=== PATIENT | male | born 1970 | race African-American/Black ===

== ENCOUNTER 2024-10-14 11:59 | Observation (INO) ==
--- NOTE | 2024-10-14 12:18 | Emergency Department Note ---
History of Present Illness General Chief complaint: Swelling/Edema to Extremity Stated complaint: PAINFUL SWOLLEN SCROTUM Time Seen by Provider: 10/14/24 12:08 History of Present Illness This is a 54-year-old male who presents to the emergency department via private vehicle accompanied by 2 corrections officers from [facility] with complaints of "swollen scrotum". Patient notes that 2 weeks ago without trauma or injury he began with scrotal pain and swelling. He initially describes the pain as if he was "kicked" in the scrotum. The patient now notes the pain is minimal but feels like the scrotum is being pulled inferiorly/notes a pulling sensation. He denies any abdominal pain. No back pain. No dysuria. No fevers or chills. No chest pain or shortness of breath. No nausea or vomiting. He does note some decreased urine output compared to baseline. Per review of the EMR patient has a history of hypertension, asthma, GERD, ulcerative colitis, eczema. Patient notes he previously was on medication but over the past week has not been on any medications. Home Medications Medication Instructions Recorded Confirmed Type bismuth subsalicylate 262 mg 1 tab PO QID PRN Diarrhea 12/19/20 10/14/24 History chewable tablet (Pepto-Bismol) ciclesonide 80 mcg/actuation 1 puff inhalation BID 12/19/20 10/14/24 History aerosol inhaler (Alvesco) albuterol sulfate 90 mcg/actuation 2 puff inhalation QID PRN SOB 10/14/24 10/14/24 History aerosol inhaler amlodipine 10 mg tablet 10 mg PO DAILY 10/14/24 10/14/24 History ergocalciferol (vitamin D2) 1,250 1,250 mcg PO WK 10/14/24 10/14/24 History mcg (50,000 unit) capsule (Vitamin D2) [id number]-[id number] 1 applic topical BID 10/14/24 10/14/24 History petrolatum topical cream (Cetaphil Moisturizing topical cream) soap 1 ea topical UD 10/14/24 10/14/24 History triamcinolone acetonide 0.1 % 1 applic topical BID PRN FLARE 10/14/24 10/14/24 History topical cream Allergies Allergy/AdvReac Type Severity Reaction Status Date / Time lisinopril Allergy Severe angioedema Verified 10/14/24 16:32 BAY Inhibitors Allergy Unknown Unknown, Unverified 10/14/24 16:32 on med list from [facility] beclomethasone [From Qvar] Allergy Unknown Unknown Verified 10/14/24 16:32 Sulfa (Sulfonamide Allergy Unknown Unknown Verified 10/14/24 16:32 Antibiotics) Past Med/Surg History Problem List (Updated 10/14/24 @ 16:45 by Kareem Coker PA-C) Edema of scrotum (Acute) Anemia Asthma Hypertension Cellulitis of scrotum (Acute) Social History Smoking Status: Never smoker Feels Safe at Home: Yes Review of Systems A total of 10 systems reviewed and were otherwise negative Physical Exam Vital Signs Vital Signs - 24 hr 10/14/24 12:03 10/14/24 14:42 Temperature 36.6 C Temperature Source Skin Pulse Rate 100 H Pulse Rate [Finger] 59 L Respiratory Rate 18 20 Respiratory Effort / Characteristics Non-Labored Spontaneous Respiratory Depth Normal Blood Pressure 178/104 H Blood Pressure [Right Arm] 136/78 Blood Pressure Mean 128 Blood Pressure Mean [Right Arm] 97 Pulse Oximetry 92 95 Oxygen Delivery Method Room Air Room Air Sepsis Recent Fever Within 48 Hours No Sepsis New/Unexplained Change in Mental Status No Sepsis Action Taken by Nursing No Action Required VITAL SIGNS - Vital signs and nursing notes were reviewed. Stable and afebrile. GENERAL - 54-year-old male appearing his stated age who is in no acute distress. Communicates well with provider and answers questions appropriately. SKIN - Without rashes. Please see exam below HEAD - NC/AT. EYES - PERRL with EOMI bilaterally. Sclera anicteric. EARS - No deformities of external structures noted on gross examination bilaterally. NOSE - Midline and without cyanosis. MOUTH/OROPHARYNX - Without perioral cyanosis. NECK - Neck with FROM.No nuchal rigidity. LUNGS - CTA CARDIAC - RRR ABDOMEN - Abdominal contour normal without pulsations or visible masses. BS normoactive all four quadrants. No tenderness, palpable masses, hepatosplenomegaly, or ascites noted. EXTREMITIES - No clubbing or peripheral cyanosis. +5/5 strength noted in UE/LE bilaterally. NEUROLOGIC - Cranial nerves grossly intact. PSYCH -alert, oriented and pleasant on exam GUverbal consent was obtained from the patient. 2 corrections officers and KESHAV Valdes at bedside to grain cleaner and transfer operator. Penis unremarkable to inspection. The scrotum is edematous without unilateral component. There is mild erythema to the scrotum. Minimal tenderness overall. Course Administered Medications Discontinued Medications Doxycycline Hyclate (Doxycycline Hyclate 100 Mg Cap) 100 mg PO NOW STA Stop: 10/14/24 14:08 Last Admin: 10/14/24 14:39 Dose: 100 mg Documented By: NA Ampicillin Sodium/Sulbactam Sodium (Unasyn) 3,000 mg in 100 mls @ 200 mls/hr IV NOW STA Stop: 10/14/24 14:34 Last Infusion: 10/14/24 16:19 Dose: Infused Documented By: Admin: 10/14/24 14:39 Dose: 200 mls/hr Documented By: YODIT Medical Decision Making Laboratory Data 10/14/24 12:25 10/14/24 12:25 Lab Results 10/14/24 10/14/24 10/14/24 Range/Units 12:25 13:25 14:08 WBC 5.71 (4.8-10.8) K/ul RBC 4.18 L (4.70-6.10) M/uL Hgb 12.0 L (14.0-18.0) g/dl Hct 37.1 L (42.0-52.0) % MCV 88.8 (80.0-100.0) fL MCH 28.7 (25.0-34.0) pg MCHC 32.3 (32.0-36.0) g/dL RDW Std Deviation 40.6 (36.4-46.3) fL RDW Coeff of Franchesca 12.6 (11.5-14.5) % Plt Count 332 (130-400) K/uL MPV 9.2 L (9.4-12.4) fL Immature Gran % (Auto) 0.4 % Neut % (Auto) 67.7 % Lymph % (Auto) 19.4 % [place] % (Auto) 10.7 % Eos % (Auto) 1.4 % Baso % (Auto) 0.4 % Neut # (Auto) 3.87 (1.40-6.50) K/uL Lymph # (Auto) 1.11 L (1.20-3.40) K/uL [place] # (Auto) 0.61 H (0.11-0.59) K/uL Eos # (Auto) 0.08 (0.00-0.50) K/uL Baso # (Auto) 0.02 (0.00-0.20) K/uL Immature Gran # (Auto) 0.02 (0.01-0.20) K/uL Sodium 141 (136-145) mmol/L Potassium 3.8 (3.5-5.1) mmol/L Chloride 104 (98-107) mmol/L Carbon Dioxide 31 (21-32) mmol/L Anion Gap 6 (3-11) BUN 7 (6-23) mg/dl Creatinine 0.80 (0.6-1.4) mg/dl Est Cr Clr Drug Dosing 140.5 ml/min eGFR 105.17 BUN/Creatinine Ratio 8.8 L (10-20) Glucose 102 H (70-99(Fasting)) mg/dl Lactate 0.9 (0.4-2.0) mmol/L Calcium 9.1 (8.6-10.3) mg/dl Total Bilirubin 0.4 (0.2-1.0) mg/dl AST 23 (13-39) U/L ALT 18 (7-52) U/L Alkaline Phosphatase 70 (34-104) U/L Total Protein 8.0 (6.0-8.3) gm/dl Albumin 4.1 (3.4-5.0) gm/dl Globulin 3.9 (2.5-4.0) gm/dl Albumin/Globulin Ratio 1.1 (0.9-2) Procalcitonin 0.08 (0-0.5) ng/ml Urine Color Yellow Urine Appearance Clear (Clear) Urine pH 7.0 (4.5-7.5) Ur Specific [place] 1.019 (1.000-1.030) Urine Protein Trace H (Negative) Urine Glucose (UA) Negative (Negative) Urine Ketones Trace H (Negative) Urine Blood Negative (Negative) Urine Nitrite Negative (Negative) Urine Bilirubin Negative (Negative) Urine Urobilinogen Negative (Negative) Ur Leukocyte Esterase Negative (Negative) Urine WBC (Auto) 0-5 (0-5) /hpf Urine RBC (Auto) 0-2 (0-2) /hpf U Hyaline Cast (Auto) 3-5 H (0-2) /lpf U Epithel Cells (Auto) 0-2 (0-2) /hpf Urine Bacteria (Auto) None Seen (None Seen) Imaging Data Radiologist's Impression: Scrotum Ultrasound 10/14/24 12:18 SCROTAL ULTRASOUND CLINICAL HISTORY: Scrotal edema, pain. COMPARISON STUDY: None. TECHNIQUE: Grayscale and color and duplex Doppler sonography of the scrotum was performed. FINDINGS: The right testis measures 4.5 x 3.2 x 2.3 cm and the left measures 4.6 x 3 x 2.4 cm. Color flow within each testis is symmetric. There is no testicular mass. 6 mm intratesticular cyst within the left testis is benign. There is no sonographic evidence for epididymitis. Scrotal wall is markedly thickened and edematous. No fluid collections are identified. IMPRESSION: 1. No sonographic evidence for testicular torsion. No testicular mass. 6 mm left testicular cyst which is benign. 2. No evidence for epididymitis. 3. Markedly thickened, edematous scrotal wall. ACT 112: Negative or not required by law. Electronically signed by: Keaton Westfall M.D. 10/14/2024 1:37 PM MDM Narrative Patient was seen and evaluated as above in room D05. Review was performed of triage nursing notes and vital signs. I did review the accompanying documentation from the [facility]. Patient was seen and evaluated as above. The patient does have an edematous scrotum with some erythema. Mild tenderness overall. No crepitus. Benign abdominal exam. Options of care were discussed with the patient, IV access with established labs were drawn. No leukocytosis. Minor anemia noted with hemoglobin of 12.0. No emergent metabolic disturbance. Mild hyperglycemia 102. Lactate and Pro-Michael are not elevated. Urinalysis does not suggest infection. Ultrasound was obtained with results as above. There is markedly thickened, edematous scrotal wall. I then discussed this with urology, ELIANE Suh at 1:42 PM. Antibiotics are recommended. We discussed inpatient versus outpatient management. At this time we will proceed with inpatient management pending clinical course. I presented this recommendation to the patient. At this time we will proceed with inpatient management. Although there are other etiologies beyond infectious causes, I do believe that treatment for infection at this time is warranted noting the appearance of the scrotum and symptoms. I did order IV Unasyn for broad coverage as well as oral doxycycline. Case discussed with the hospitalist service. Please refer to further documentation regarding his stay. GCS: 15 In the evaluation and treatment of this patient the following differential diagnoses were entertained: UTI, pyelonephritis, epididymitis, orchitis, testicular torsion, testicular mass, hernia, cellulitis, Amador gangrene, among others. Impression & Plan Cellulitis of scrotum, Edema of scrotum Discharge Plan Visit Data Chief Complaint: Swelling/Edema to Extremity Stated Complaint: PAINFUL SWOLLEN SCROTUM ED Provider: James Lu ED Midlevel Provider: Kareem Coker Discharge Problem: Cellulitis of scrotum, Edema of scrotum Patient Disposition: Admitted As Inpatient Condition: Good Discharge Instructions Interventions: ED Discharge Assessment Last Done: 10/14/24 16:22
[2024-10-14 12:57] LABS: Albumin Globulin Ratio 1.1 (0.9-2); Albumin Level 4.1 gm/dl (3.4-5.0); BUN Creatinine Ratio 8.8 (10-20); Bilirubin,Total 0.4 mg/dl (0.2-1.0); Calcium 9.1 mg/dl (8.6-10.3); Creatinine Clr Calc Pharmacy 140.5 ml/min; Globulin 3.9 gm/dl (2.5-4.0); Potassium 3.8 mmol/L (3.5-5.1)
[2024-10-14 13:07] LABS: Basophils # (auto) 0.02 K/uL (0.00-0.20); Basophils % (auto) 0.4 %; Eosinophils # (auto) 0.08 K/uL (0.00-0.50); Eosinophils % (auto) 1.4 %; Hematocrit (blood only) 37.1 % (42.0-52.0); Immature Granulocytes # (auto) 0.02 K/uL (0.01-0.20); Immature Granulocytes % (auto) 0.4 %; Lymphocytes # (auto) 1.11 K/uL (1.20-3.40); Lymphocytes % (auto) 19.4 %; Mean Corpuscular Hemoglobin 28.7 pg (25.0-34.0); Mean Corpuscular Hgb Conc 32.3 g/dL (32.0-36.0); Mean Corpuscular Volume 88.8 fL (80.0-100.0); Mean Platelet Volume 9.2 fL (9.4-12.4); Monocytes # (auto) 0.61 K/uL (0.11-0.59); Monocytes % (auto) 10.7 %; Neutrophils # (auto) 3.87 K/uL (1.40-6.50); Neutrophils % (auto) 67.7 %; Platelet Count 332 K/uL (130-400); RDW Coefficient of Variation 12.6 % (11.5-14.5); RDW Standard Deviation 40.6 fL (36.4-46.3); Red Blood Count 4.18 M/uL (4.70-6.10); White Blood Count 5.71 K/ul (4.8-10.8)
--- NOTE | 2024-10-14 13:38 | Ultrasound Report ---
SCROTAL ULTRASOUND CLINICAL HISTORY: Scrotal edema, pain. COMPARISON STUDY: None. TECHNIQUE: Grayscale and color and duplex Doppler sonography of the scrotum was performed. FINDINGS: The right testis measures 4.5 x 3.2 x 2.3 cm and the left measures 4.6 x 3 x 2.4 cm. Color flow within each testis is symmetric. There is no testicular mass. 6 mm intratesticular cyst within t he left testis is benign. There is no sonographic evidence for epididymitis. Scrotal wall is markedly thickened and edematous. No fluid collections are identified. IMPRESSION: 1. No sonographic evidence for testicular torsion. No testicular mass. 6 mm left testicular cyst whic h is benign. 2. No evidence for epididymitis. 3. Markedly thickened, edematous scrotal wall. ACT 112: Negative or not required by law. Electronically signed by: Keaton Westfall M.D. 10/14/2024 1:37 PM
[2024-10-14 13:44] LABS: Appearance Urine Clear (Clear); Bacteria Urine Automated None Seen (None Seen); Bilirubin Urine Negative (Negative); Blood Urine Negative (Negative); Color Urine Yellow; Epithelial Cell Urine Auto 0-2 /hpf (0-2); Glucose Urine UA Negative (Negative); Ketones Urine Trace (Negative); Leukocyte Esterase Urine Negative (Negative); Nitrite Urine Negative (Negative); Protein Urine Trace (Negative); RBC Urine Automated 0-2 /hpf (0-2); Specific Gravity Urine 1.019 (1.000-1.030); Urobilinogen Urine Negative (Negative); WBC Urine Automated 0-5 /hpf (0-5)
[2024-10-14] MEDS: DOXYCYCLINE HYCLATE 100 MG CAP PO STA (14:39)
[2024-10-14] MEDS: AMPICILLIN/SULBACTAM SOD 3,000 MG/100 ML BAG IV STA (14:39)
--- NOTE | 2024-10-14 14:50 | History & Physical Report ---
Date of Service October 14, 2024 Assessment & Plan (1) Cellulitis of scrotum: Plan: patient with scrotal swelling for multiple weeks, no trauma Nontender No leukocytosis, VSS, afebrile UA negative Scrotal ultrasound shows 6 mm testicular cyst, markedly thickened edematous scrotal wall, no epididymitis, no torsion continue Unasyn and doxycycline; transition to p.o. antibiotics on discharge, likely Augmentin and doxycycline Consult urology Tylenol as needed Bladder scan as needed (2) Hypertension: Plan: continue amlodipine (3) Asthma: Plan: continue home inhalers Plan VTE ppx: SCDs; if prolonged stay can add chemical ppx Diet: regular Dispo: med/surg Admission and Anticipated Discharge Date Admission Date: 10/14/24 History of Present Illness Chief Complaint: Swelling/edema Primary Care Provider: [facility] Patient is a 54-year-old male with a past medical history of hypertension, asthma, GERD, ulcerative colitis, eczema. He presents from [facility] due to a swollen scrotum. Patient stated that it began a few weeks ago and now he feels a pulling sensation. he stated the first day he did have a pain that has not resolved and not returned. It has been unchanged for the past few weeks, the swelling has been consistent. He feels as though it is more so a pressure rather than a pain. He stated he did have a hydrocele previously but did not have swelling comparable to this. He has not had trauma to the area. He stated he does feel like he is urinating less frequently but is still able to urinate. Patient denies fever, chills, dyspnea, chest pain, abdominal pain, nausea, vomiting, dysuria, hematuria, edema, numbness, tingling. Handoff from the ED stated that they spoke with urology who recommended inpatient stay for at least 1 day with IV antibiotics. Allergies Allergy/AdvReac Type Severity Reaction Status Date / Time lisinopril Allergy Severe angioedema Verified 10/14/24 16:32 BAY Inhibitors Allergy Unknown Unknown, Unverified 10/14/24 16:32 on med list from [facility] beclomethasone [From Qvar] Allergy Unknown Unknown Verified 10/14/24 16:32 Sulfa (Sulfonamide Allergy Unknown Unknown Verified 10/14/24 16:32 Antibiotics) Home Medications Medication Instructions Recorded Confirmed Type bismuth subsalicylate 262 mg 1 tab PO QID PRN Diarrhea 12/19/20 10/14/24 History chewable tablet (Pepto-Bismol) ciclesonide 80 mcg/actuation 1 puff inhalation BID 12/19/20 10/14/24 History aerosol inhaler (Alvesco) albuterol sulfate 90 mcg/actuation 2 puff inhalation QID PRN SOB 10/14/24 10/14/24 History aerosol inhaler amlodipine 10 mg tablet 10 mg PO DAILY 10/14/24 10/14/24 History ergocalciferol (vitamin D2) 1,250 1,250 mcg PO WK 10/14/24 10/14/24 History mcg (50,000 unit) capsule (Vitamin D2) [id number]-[id number] 1 applic topical BID 10/14/24 10/14/24 History petrolatum topical cream (Cetaphil Moisturizing topical cream) soap 1 ea topical UD 10/14/24 10/14/24 History triamcinolone acetonide 0.1 % 1 applic topical BID PRN FLARE 10/14/24 10/14/24 History topical cream Past Med/Surg History Problem List (Updated 10/14/24 @ 16:00 by Virginia Arechiga PA-C) Anemia Asthma Hypertension Cellulitis of scrotum Social History Smoking Status: Never smoker Feels Safe at Home: Yes Review of Systems Review of Systems: see HPI Physical Exam Physical Exam: The patient is awake, alert and oriented 3, well developed and well nourished, normocephalic and atraumatic, in no acute distress. Non-toxic appearing. HEENT- EOMI, mucous membranes moist. Hearing grossly intact. Heart-normal S1 and S2. No murmurs, rubs or gallops. Lungs-clear bilaterally, no respiratory distress, no accessory muscle use. Abdomen-normal bowel sounds and soft. No ascites noted. Non-tender. Extremities- no clubbing, cyanosis, or edema. Rheumatologic-normal range of motion. Psychiatric-normal affect. Genitourinary: Severe swelling of left scrotum Results & Data Results & Data Vital Signs (Past 12 Hours) Vital Signs Temp Pulse Pulse Resp BP BP Pulse Ox 10/14/24 14:42 59 L 20 136/78 95 10/14/24 12:03 36.6 C 100 H 18 178/104 H 92 O2 Del Method 10/14/24 14:42 Room Air 10/14/24 12:03 Room Air Laboratory Results Reviewed CBC, CMP, UA Diagnostic Findings reviewed scrotal us Medications Administered ed: Unasyn and doxy Code Status & VTE Plan Code Status full VTE Prophylaxis Plan VTE Prophylaxis will be ordered: Yes Supervising Physician Co-Signing Physician Notes Patient was seen and examined independently I discussed the case with Virginia LOUIE I reviewed pertinent past medical social family history and also the plan of care and agree with the plan of care. 54-year-old male who is a prisoner at [facility] presents with a swollen scrotum for 2 weeks denying injury or trauma. He is having significant pain he feels he is not making as much urine he has no history of diabetes Examination shows a very swollen scrotum which is indurated near the lower or more dependent aspect. Ultrasound of the scrotum denies any type of testicular torsion or loculated fluid collection however there is 6 mm left testicular cyst . It was commented that there is no evidence of epididymitis Patient be brought in our facility given Unasyn therapy likely transition back to reviewing a short period of time on oral antibiotics Any exceptions will be noted below PG Care Time/CCT Total # of Minutes Spent Total Time Spent with Patient: Total time spent is greater than 50% in coordination of care (as documented) at patient's floor/unit and/or counseling patient: Coding Level of Care Code 31633 INT INP/OBS CARE 3/75MIN Diagnoses Cellulitis of scrotum N49.2 Hypertension I10 Asthma J45.909
[2024-10-14] MEDS ORDERED: ACETAMINOPHEN 325 MG TAB PO PRN (16:21)
[2024-10-14] MEDS ORDERED: ALBUTEROL HFA 8 GM INHALER INH PRN (16:33)
--- NOTE | 2024-10-14 17:00 | Urology Consultation ---
Date of Consultation October 14, 2024 Assessment & Plan (1) Cellulitis of scrotum: Plan 54yo incarcerated male admitted with scrotal cellulitis Scrotal ultrasound reviewed and shows a markedly thickened edematous scrotal wall, no evidence for epididymitis, and no fluid collections identified. He is afebrile with stable vitals. Labs show no leukocytosis and normal renal function. Urinalysis not concerning for infection. No intervention warranted. Continue IV antibiotic therapy. Continue supportive care, scrotal elevation, and ice to affected area as needed. Monitor bladder scans/PVR to ensure he is emptying. will follow. Plan/imaging reviewed with Dr. Lopez. History of Present Illness Attending Physician: Harry Vigil MD History of Present Illness 54-year-old incarcerated male with a past medical history of hypertension, asthma, GERD, ulcerative colitis, eczema who presented to the ED today from [facility] due to a scrotal edema. On arrival he was afebrile and hemodynamically stable. Labs show no leukocytosis, hemoglobin 12.0, and normal renal function. Urinalysis with trace ketones, trace protein, otherwise unremarkable. Scrotal ultrasound demonstrates a markedly thickened edematous scrotal wall, no evidence for epididymitis, no fluid collections identified. Patient admitted to medicine service for IV antibiotics. He was started on doxycycline and Unasyn. Scrotal ultrasound- 1. No sonographic evidence for testicular torsion. No testicular mass. 6 mm left testicular cyst which is benign. 2. No evidence for epididymitis. 3. Markedly thickened, edematous scrotal wall. Pt was seen at bedside in the ED. Awake and resting in bed on arrival. No acute distress. Guards x 2 at bedside. Pt reports symptoms started a few weeks ago and have progressively worsened and now he feels a pulling sensation. He reports he was told he had a hydrocele previously but is unsure of details. He denies any additional history. He denies fever, chills, nausea, vomiting. Denies any pain or discomfort. Denies any open areas or drainage. Denies hematuria or dysuria. Feels he is emptying his bladder well. Allergies Allergy/AdvReac Type Severity Reaction Status Date / Time lisinopril Allergy Severe angioedema Verified 10/14/24 16:32 BAY Inhibitors Allergy Unknown Unknown, Unverified 10/14/24 16:32 on med list from [facility] beclomethasone [From Qvar] Allergy Unknown Unknown Verified 10/14/24 16:32 Sulfa (Sulfonamide Allergy Unknown Unknown Verified 10/14/24 16:32 Antibiotics) Home Medications Medication Instructions Recorded Confirmed Type bismuth subsalicylate 262 mg 1 tab PO QID PRN Diarrhea 12/19/20 10/14/24 History chewable tablet (Pepto-Bismol) ciclesonide 80 mcg/actuation 1 puff inhalation BID 12/19/20 10/14/24 History aerosol inhaler (Alvesco) albuterol sulfate 90 mcg/actuation 2 puff inhalation QID PRN SOB 10/14/24 10/14/24 History aerosol inhaler amlodipine 10 mg tablet 10 mg PO DAILY 10/14/24 10/14/24 History ergocalciferol (vitamin D2) 1,250 1,250 mcg PO WK 10/14/24 10/14/24 History mcg (50,000 unit) capsule (Vitamin D2) [id number]-gldvt 1 applic topical BID 10/14/24 10/14/24 History petrolatum topical cream (Cetaphil Moisturizing topical cream) soap 1 ea topical UD 10/14/24 10/14/24 History triamcinolone acetonide 0.1 % 1 applic topical BID PRN FLARE 10/14/24 10/14/24 History topical cream Patient History Social History Smoking Status: Never smoker Feels Safe at Home: Yes Review of Systems Review of Systems: All systems reviewed & are unremarkable except as noted in HPI & below Physical Exam Constitutional: no acute distress Neck: normal visual inspection Respiratory: no respiratory distress and no labored breathing Musculoskeletal: Head/Neck/Chest: normocephalic Neurologic: awake Psychiatric: A+Ox3, euthymic affect Genitourinary: 2 corrections officers at bedside to addis sims. Penis unremarkable to inspection. The scrotum is markedly swollen and edematous bilaterally. Indurated near the lower or more dependent aspect. There is mild erythema to the scrotum. Minimal tenderness overall. No open areas or drainage. No fluctuance or crepitus. No signs of necrosis. Results & Data Vital Signs (Past 12 Hours) Vital Signs Temp Pulse Pulse Resp BP BP Pulse Ox 10/14/24 14:42 59 L 20 136/78 95 10/14/24 12:03 36.6 C 100 H 18 178/104 H 92 O2 Del Method 10/14/24 14:42 Room Air 10/14/24 12:03 Room Air PG Care Time/CCT Total # of Minutes Spent Total Time Spent with Patient: Total time spent is greater than 50% in coordination of care (as documented) at patient's floor/unit and/or counseling patient: Coding Level of Care Code 82183 IN/OBS CONSULT LVL 3,45M Diagnoses Cellulitis of scrotum N49.2
--- NOTE | 2024-10-14 17:01 | XRay Report ---
EXAM: Portable AP chest radiograph TECHNIQUE: AP portable radiograph of the chest was obtained. INDICATION: Shortness of breath Comparison: None FINDINGS: LINES and TUBES: None CARDIOVASCULAR: Cardiac silhouette is enlarged in size. LUNGS/PLEURA: Peribronchial cuffing that may be seen with infectious/inflammatory bronchiolitis. Patchy densities in the right infrahilar region could represent mild pneumonia. Also there is right hilar fullness which may be due to enlarged lymph nodes. No significant pleural fluid. No discernible pneumothorax. OSSEOUS/OTHER: No displaced acute osseous process identified. IMPRESSION: Peribronchial cuffing that may be seen with infectious/inflammatory bronchiolitis. Patchy densities in the right infrahilar region could represent mild pneumonia. Also there is right hilar fullness which may be due to enlarged lymph nodes. Cardiac silhouette enlargement. Electronically signed by Shiva Baker 10-14-2024 5:01 PM
[2024-10-14] MEDS: amLODIPine BESYLATE 5 MG TAB PO SCH (17:43)
[2024-10-14] MEDS: DOXYCYCLINE HYCLATE 100 MG CAP PO SCH (20:06)
[2024-10-14] MEDS: AMPICILLIN/SULBACTAM SOD 3,000 MG/100 ML BAG IV SCH (21:45)
[2024-10-15 07:30] LABS: Basophils # (auto) 0.01 K/uL (0.00-0.20); Basophils % (auto) 0.2 %; Eosinophils # (auto) 0.12 K/uL (0.00-0.50); Eosinophils % (auto) 2.1 %; Hematocrit (blood only) 37.7 % (42.0-52.0); Hemoglobin 12.4 g/dl (14.0-18.0); Immature Granulocytes # (auto) 0.02 K/uL (0.01-0.20); Immature Granulocytes % (auto) 0.4 %; Lymphocytes % (auto) 17.6 %; Mean Corpuscular Hgb Conc 32.9 g/dL (32.0-36.0); Mean Corpuscular Volume 88.3 fL (80.0-100.0); Monocytes # (auto) 0.56 K/uL (0.11-0.59); Monocytes % (auto) 9.9 %; Neutrophils # (auto) 3.96 K/uL (1.40-6.50); Neutrophils % (auto) 69.8 %; Platelet Count 299 K/uL (130-400); RDW Coefficient of Variation 12.6 % (11.5-14.5); RDW Standard Deviation 40.7 fL (36.4-46.3); Red Blood Count 4.27 M/uL (4.70-6.10); White Blood Count 5.67 K/ul (4.8-10.8)
[2024-10-15 07:50] VITALS: BP 116/72; PULSE 79; RESP 16; TEMP 98.2; O2SAT 94
[2024-10-15 07:54] LABS: BUN Creatinine Ratio 9.5 (10-20); Calcium 8.9 mg/dl (8.6-10.3); Creatinine Clr Calc Pharmacy 151.7 ml/min; Potassium 3.7 mmol/L (3.5-5.1)
[2024-10-15] MEDS: FLUTICASONE FUROATE 100MCG 14 PUFFS/INHALER INH SCH (09:12)
--- NOTE | 2024-10-15 09:58 | XCELERA ---
[id number]
--- NOTE | 2024-10-15 11:14 | CT Scan Report ---
CT OF THE ABDOMEN AND PELVIS WITH ORAL CONTRAST CLINICAL HISTORY: Lymphadenopathy. COMPARISON STUDY: Scrotal ultrasound October 14, 2024. TECHNIQUE: Axial images of the abdomen and pelvis were obtained without IV contrast. Oral contrast wa s administered. Automated exposure control was utilized for the study. A dose lowering technique was utilized adhering to the principles of ALARA. FINDINGS: Lung bases are unremarkable. No pneumatosis, free air or portal venous gas is present. Ther e is no hydronephrosis. No renal, ureteral or bladder calculi are present. Evaluation the remainder o f the abdomen and pelvis is suboptimal on this unenhanced exam. Unenhanced images of the liver, splee n, adrenal glands and pancreas are unremarkable. There is no biliary or pancreatic ductal dilatation. There is no evidence for a bowel obstruction. Numerous subcentimeter small pericolonic lymph nodes a re present. These are abnormal in number only. No bowel wall thickening is identified on unenhanced e xamination. Is mild submucosal fat deposition within the rectum. There are no fluid collections withi n the abdomen or pelvis. Marked scrotal wall edema is noted with associated skin thickening and stran ding, partially imaged on this exam. There is no soft tissue gas. There are prominent bilateral ingui nal lymph nodes. These are likely reactive. There are mildly enlarged bilateral external iliac nodes. Index right external iliac lymph node on image 324 measures 1.7 x 1.3 cm. IMPRESSION: 1. Marked scrotal wall edema with associated skin thickening and stranding suggestive of cellulitis, as shown on scrotal ultrasound. 2. Prominent bilateral inguinal lymph nodes which are likely reactive. Mildly enlarged bilateral exte rnal iliac lymph nodes are also likely reactive. A follow-up CT of the abdomen and pelvis 3-6 months to ensure resolution is recommended. 3. Numerous subcentimeter pericolonic lymph nodes, abnormal in number only. These are nonspecific but likely benign and can be assessed on follow-up CT. 4. No bowel obstruction. ACT 112: Negative or not required by law. Electronically signed by: Keaton Westfall M.D. 10/15/2024 11:12 AM
--- NOTE | 2024-10-15 15:56 | Discharge Summary ---
Discharge Summary Date of Service October 15, 2024 Principal Dx & Hospital Course #1 = Principal Diagnosis (1) Cellulitis of scrotum: patient with scrotal swelling for multiple weeks, no trauma Nontender No leukocytosis, VSS, afebrile UA negative Scrotal ultrasound shows 6 mm testicular cyst, markedly thickened edematous scrotal wall, no epididymitis, no torsion CT abd pelvis scrotal wall thickening no abscess prominent lymph nodes appear to be reactive recommend follow-up CT scan in 3 to 6-month of chest and abdomen due to lymphadenopathy seen Urology did evaluate no plans for intervention Transition to Augmentin at time of discharge Tylenol as needed (2) Hypertension: continue amlodipine (3) Asthma: continue home inhalers Plan Patient transferred back to the present Notes For Next Care Provider Patient will likely need follow-up imaging to look for lymphadenopathy in this patient recommending CT scan in 3 to 6 months chest abdomen pelvis Admission HPI Per Admitting Provider Patient is a 54-year-old male with a past medical history of hypertension, asthma, GERD, ulcerative colitis, eczema. He presents from [facility] due to a swollen scrotum. Patient stated that it began a few weeks ago and now he feels a pulling sensation. he stated the first day he did have a pain that has not resolved and not returned. It has been unchanged for the past few weeks, the swelling has been consistent. He feels as though it is more so a pressure rather than a pain. He stated he did have a hydrocele previously but did not have swelling comparable to this. He has not had trauma to the area. He stated he does feel like he is urinating less frequently but is still able to urinate. Patient denies fever, chills, dyspnea, chest pain, abdominal pain, nausea, vomiting, dysuria, hematuria, edema, numbness, tingling. Handoff from the ED stated that they spoke with urology who recommended inpatient stay for at least 1 day with IV antibiotics. Discharge Exam Awake alert appropriate. Scrotum is still swollen much less tender Discharge Plan Discharge Items [facility] Reason For Visit: SCROTAL CELLULITIS Discharge Diagnosis: cellulitis of scrotum Condition on Discharge: Good Activity: Resume your previous activity Non-emergency contact: Primary Care Provider Call non-emergency contact if: your symptoms worsen Follow-up/Referrals: Honey BLACK [Primary Care Provider] - Diet: Regular Addtl Attending Provider Instructions: you have a superficial skin infection of your scrotum, please clean daily with soap and water and keep dry complete 2 weeks of antibiotics Pending Studies at Discharge: Yes Studies:: urine culture Skilled Items Patient informed of condition?: Yes DNR: No Discharge Level of Care: Other Communicable Disease: No Discharge Prognosis: Stable Lines: None Urinary Catheter: No Medications and DC Order Prescriptions: New amoxicillin-pot clavulanate 875-125 mg tablet 1 tab PO BID Qty: 28 0RF Continued bismuth subsalicylate [Pepto-Bismol] 262 mg Tablet,Chewable 1 tab PO QID PRN (Reason: Diarrhea) Alvesco 80 mcg/actuation Hfa Aerosol Inhaler 1 puff INHALATION BID triamcinolone acetonide 0.1 % Cream 1 applic TOPICAL BID PRN (Reason: FLARE) amlodipine 10 mg Tablet 10 mg PO DAILY ergocalciferol (vitamin D2) [Vitamin D2] 1,250 mcg (50,000 unit) Capsule 1,250 mcg PO WK Rx Instructions: Mondays albuterol sulfate 90 mcg/actuation Hfa Aerosol Inhaler 2 puff INHALATION QID PRN (Reason: SOB) soap Shampoo 1 ea topical UD Cetaphil Moisturizing Cream 1 applic TOPICAL BID Admission Data Admit Date/Time: 10/14/24 15:29 Attending Provider: Harry Vigil Admit Provider: Harry Vigil Primary Care Provider: Honey BLACK Other Providers: Saumya Back; Harry Vigil Other Interventions: Discharge Summary Assessment (RN) Last Done: 10/15/24 14:26 Hospital Stay Data Consultations 10/14/24 14:49 ED Decision to Admit Stat 10/14/24 15:23 Consult Urology Routine Diagnostic Imagining Performed 10/14/24 12:18 US scrotum/testicle Stat 10/15/24 08:07 CT Abd and Pelvis [CT abd pelvis oral con only] Routine Pending Results Patient Have Any Pending Studies at Discharge: Yes Discharge Instructions Given to Patient (Per Discharging Provider) you have a superficial skin infection of your scrotum, please clean daily with soap and water and keep dry complete 2 weeks of antibiotics Total Time Total Time Spent Total Time Spent (In Minutes): It required greater than 30 minutes to prepare this patient for discharge. Coding Level of Care Code 15958 INP/OBS DISCH >30 MIN Diagnoses Cellulitis of scrotum N49.2 Hypertension I10 Asthma J45.909
== END 2024-10-15 16:19 ==
LOC: ED 11:59 → EDINP 11:59 → 3E 16:22